=== PATIENT | male | born 1985 | race Caucasian/White ===

== ENCOUNTER → 2020-07-25 | Outpatient (CLI) | payer SELFPAY | LOC: M LABSMTC 10:19 | PROVIDERS: ATTEND Pediatrics | DX: Z20.822 Contact with and (suspected) exposure to COVID-19 (principal) ==

== ENCOUNTER → 2023-10-26 | Outpatient (CLI) | payer OTHER | LOC: M RAD 08:46 → MERGE 09:00 | PROVIDERS: ATTEND Physician Assistant | DX: I74.8 Embolism and thrombosis of other arteries (principal) ==

== ENCOUNTER → 2024-07-04 | Outpatient (REF) | payer OTHER | LOC: M SFHCPLAZ 14:25 | PROVIDERS: ATTEND Physician Assistant Medical | DX: J06.9 Acute upper respiratory infection, unspecified (principal) ==